=== PATIENT | male | born 1955 | race Caucasian/White ===

== ENCOUNTER 2016-09-06 11:23 | Emergency (ER) | payer MEDICARE ==
--- NOTE | ~2016-09-06 | EKG ---
PATIENT: YONIS GUTIERREZ UNIT #: [id number] Ventricular Rate: 87 BPM Atrial Rate: 87 BPM P-R Interval: 150 ms QRS Duration: 92 ms Q-T Interval: 396 ms QTC Calculation(Bezet): 476 ms P [employer]: 69 degrees Calculated R [employer]: -74 degrees Calculated T [employer]: -75 degrees Diagnosis Line: Normal sinus rhythm Diagnosis Line: Left anterior fascicular block Diagnosis Line: Lateral infarct (cited on or before 25-DEC-2012) Diagnosis Line: ST and T wave abnormality, consider inferior Diagnosis Line: ischemia Diagnosis Line: Abnormal ECG Diagnosis Line: When compared with ECG of 25-DEC-2012 06:42, Diagnosis Line: ST elevation now present in Lateral leads Diagnosis Line: Inverted T waves have replaced nonspecific T wave Diagnosis Line: abnormality in Anterolateral leads Diagnosis Line: Confirmed by VALENTINA CARSON MD ([id number]) on Diagnosis Line: 09/07/2016 7:59:51 AM INTERPRETING MD: YAMILETH CAMPO
--- NOTE | ~2016-09-06 | CT12 ---
[facility] A Service of [facility] & [facility] RADIOLOGY TEXT RESULTS PATIENT: YONIS GUTIERREZ JR LOCATION: [facility] : 53 UNIT #: [id number] AGE: [address]: Gloria Matias MD SEX: M ORDER DR: [id number] [facility] [address] [place], [place] [address] [id number] MR#: [id number] #: [id number] NAME: YONIS GUTIERREZ JR : 1955 SEX: M STUDY DATE/TIME: 09/06/2016 12:30 UNIT: [facility] ROOM: STUDY DESCRIPTION: CT Angio Abd Pelv Runoff Attending Physician: Gloria Matias M.D. Ordering Physician: Gloria Matias M.D. Primary Care Physician: No Primary Care Physician MEDICAL IMAGING REPORT This report is preliminary unless electronic signature is present EXAM CT angiography abdomen and pelvis lower extremity run off. HISTORY No pulses in the left foot. Additional history left foot pain since last p.m. Left foot blue today. No pulses. TECHNIQUE CT abdomen pelvis lower extremities performed with intravenous administration of 125 mL Isovue-370. This CT exam was performed with one or more of the following radiation dose reduction techniques: automatic exposure control, adjustment of mA and/or kV according to patient size, and iterative reconstruction. COMPARISON STUDIES Comparison to CT abdomen and pelvis 05/17/2015. No prior angiographic imaging of the lower extremities. ' FINDINGS The lung bases show no acute disease. There is some mild underlying centrilobular emphysema. The inferior heart and pericardium notable for mitral annular calcifications. Liver, gallbladder, spleen notable for lobulated appearance of the spleen with focal areas of parenchymal loss. This could be congenital in nature. It could be a reflection of prior splenic infarcts. It is not felt to be acute in time course. Pancreas, adrenal glands, kidneys unremarkable. CT PELVIS: No inguinal adenopathy. Urinary bladder, prostate unremarkable. No free fluid in pelvis. No pelvic or retroperitoneal adenopathy. Distal esophagus, stomach, small bowel unremarkable. Appendix normal. Colon shows evidence of prior sigmoid resection and reanastomoses. Mild mural prominence at the anastomotic line. No change STS. [facility] A Service of [facility] & [facility] RADIOLOGY TEXT RESULTS PATIENT: YONIS GUTIERREZ JR [id number] : 53 UNIT #: [id number] AGE: [address]: Gloria Matias MD SEX: M ORDER DR: from 2016 and favored to be postoperative in nature. There are calcifications in the pelvic fat favored to represent calcified lymph nodes. In the anterior abdominal wall to the left of the umbilicus there is an 8 mm focus of air density with some associated fat stranding. Please correlate with any known trauma or medicine administration at this location. I see no associated fluid. 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 The right lower extremity nonvascular soft tissues show no acute appearing abnormality. There is muscular atrophy. The left lower extremity nonvascular soft tissues show no clearly acute abnormality. Bony structures show multilevel degenerative change in the spine. No clearly acute bony abnormality. Soft tissue changes medial right foreleg may be a reflection of prior vascular intervention/venous harvesting. ARTERIAL ANATOMY: Distal thoracic aorta unremarkable. The celiac axis is patent. Mild disease at its origin. The superior mesenteric artery is patent. No significant atherosclerotic disease at its origin. Two right renal arteries arising immediately adjacent to one another. No hemodynamically significant disease at their origin. There is mild atherosclerotic disease of the main right renal artery origin. There are 2 left renal arteries arising immediately adjacent to one another. No indication of hemodynamically significant luminal narrowing. Mild disease at origin of the main left renal artery. The inferior mesenteric artery is patent. Probably moderate disease at its origin. The infrarenal abdominal aorta is small in overall caliber measuring up to approximately 1.8 cm x 1.7 cm with patent lumen of 1.3 cm x 1.4 cm. There is evidence of prior right common iliac artery stenting. 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 The patient has a femoral to femoral artery bypass graft which appeared widely patent in May 2015. It is occluded on today's examination. Previous study showed flow in the right common femoral artery on prior study. The short segment of residual right common femoral artery is now occluded. Previously seen flow in diminutive right superficial femoral artery absent on the current examination. There is collateral reconstitution of the right profunda femoris artery which is markedly diminutive in caliber. There is atherosclerotic plaque in the left common iliac artery. Noncalcified plaque extends into the lumen of the left common iliac artery. This is new compared to May 2015. It could act as a nidus for embolic material. There is probably not hemodynamically significant luminal narrowing of the left common iliac artery. The left internal and external iliac arteries are patent with mild disease in the internal iliac artery. The left common femoral artery is patent. Mild disease. The left profunda femoris artery is patent. Left superficial femoral artery patent without evidence of flow-limiting stenosis. Above-knee, behind knee and below-knee popliteal arterial segments are patent. The anterior tibial artery is patent to the level of the ankle. It is not well visualized at or distal to the level of the ankle. Delayed phase images were obtained without clear opacification of the dorsalis pedis artery at [facility] A Service of [facility] / [facility] RADIOLOGY TEXT RESULTS PATIENT: YONIS GUTIERREZ JR LOCATION: [facility] #: [id number] : 53 UNIT #: [id number] AGE: [address]: Gloria Matias MD SEX: M ORDER DR: or beyond the level of the ankle joint. Whether this represents acute or chronic occlusion or acute on chronic disease is unclear on basis of this examination. The left tibioperoneal trunk is patent. The left peroneal artery is patent throughout its course. It ramifies into collaterals at the ankle. The left posterior tibial artery is patent to the level of the ankle. On the initial and delayed images I do not clearly see the posterior tibial artery extending into the foot. The distal small vessels could be further evaluated with standard catheter angiography. IMPRESSION 1. Abnormal examination. Please see the complete dictation above in specific the segment of report labeled arterial anatomy. Relative to the patient's symptomatic left lower extremity, there is new noncalcified atherosclerotic plaque extending into the lumen of the left common iliac artery. This is probably not causing hemodynamically significant luminal narrowing but could act as a nidus for embolic material. The remainder of the left mid to distal common iliac artery, internal and external iliac arteries show no evidence of flow-limiting stenosis. The left common femoral artery is patent. The patient had a left to right femoral to femoral artery bypass graft which was widely patent in May 2015 and which is completely occluded now. The left common femoral artery remains patent, left superficial femoral, profunda femoris and popliteal arteries are patent. There is three-vessel runoff in the left foreleg to the level of the ankle. I cannot see the anterior tibial/dorsalis pedis artery extending into the foot or the posterior tibial artery extending into the foot on either the initial set of images or delayed phase imaging. Findings are concerning for occlusion of these vessels at the level of the ankle. To what extent the occlusion represents chronic disease or acute on chronic disease is unclear. This could be further evaluated with standard catheter angiography. 2. As noted the patient's femoral to femoral bypass graft is occluded. There is occlusion of the right common femoral artery. On the prior examination, flow was demonstrated in the right common femoral artery and diminutive right superficial femoral and profunda femoris remnants. On the current examination there is only minimal flow seen in tiny right profunda femoris artery. Patient is status post right above-knee amputation. 3. The mesenteric vessels are patent without flow-limiting stenosis. Incidental note made 2 renal arteries bilaterally. Relatively small caliber infrarenal abdominal aorta measuring about 1.7-1.8 cm in diameter with a patent lumen on the order of 1.3-1.4 cm. 4. Small focus of air and subcutaneous fat stranding left anterior abdominal wall paraumbilical region. Correlate with any recent medicine administration at this location or any recent trauma. There is no associated fluid collection and I see no skin defect. 5. Chronic occlusion of the right common iliac artery, internal and external iliac arteries, unchanged from prior study. [facility]. [facility] A Service of [facility] / [facility] RADIOLOGY TEXT RESULTS PATIENT: YONIS GUTIERREZ JR LOCATION: [facility] #: [id number] : 53 UNIT #: [id number] AGE: [address]: Gloria Matias MD SEX: M ORDER DR: 6. Please see remainder of incidental findings in body of report above. 7. Vascular findings preliminarily discussed with Dr. Matias at time of this dictation. Dictated by... Eugenio Reyes M.D. THIS IS AN ELECTRONICALLY VERIFIED REPORT Eugenio Reyes M.D. at 09/07/2016 9:39 PM Brenden TD: 09/06/2016 14:59 JOB #: [id number] MEDICAL IMAGING REPORT Page 1 of 1 COPY
--- NOTE | ~2016-09-06 | CR72 ---
[facility] A Service of [facility] & [facility] RADIOLOGY TEXT RESULTS PATIENT: YONIS GUTIERREZ JR LOCATION: [facility] : 53 UNIT #: [id number] AGE: [address]: Gloria Matias MD SEX: M ORDER DR: [id number] [facility] [address] [place], [place] [address] [id number] MR#: [id number] Acc #: [id number] NAME: YONIS GUTIERREZ JR : 1955 SEX: M STUDY DATE/TIME: 09/06/2016 12:11 UNIT: [facility] ROOM: STUDY DESCRIPTION: CR Chest Single View Portable Attending Physician: Gloria Matias M.D. Ordering Physician: Gloria Matias M.D. Primary Care Physician: No Primary Care Physician MEDICAL IMAGING REPORT This report is preliminary unless electronic signature is present EXAM Portable chest HISTORY Shortness of breath and weakness for the past 2 days. COMPARISON 05/11/2015 TECHNIQUE Single view chest was obtained. FINDINGS A single AP portable view of the chest shows both lungs to be clear. The heart is normal in size. The mediastinal contour is normal. No significant bone abnormalities are seen. IMPRESSION Normal portable chest. Dictated by... Demian Freeman M.D. THIS IS AN ELECTRONICALLY VERIFIED REPORT Demian Freeman M.D. at 09/06/2016 4:08 PM KODI/vin TD: 09/06/2016 14:05 JOB #: [id number] MEDICAL IMAGING REPORT Page 1 of 1 COPY
[~2016-09-06 11:23] MED LIST: ABILIFY5 MG PO; ALDACTONE25 MG PO; ALPRAZOLAM PO; ALTACE PO; ALTACE10 M2 PO; AMBIEN10 MG PO; AMLODIPINE BESY10 MG PO; APRESOLINE10 M1 PO; ARIXTRA7.5 MG/0.6 SQ; ASPIRIN PO; ASPIRIN81 MG PO; ATENOLOL PO; ATENOLOL25 MG PO; ATIVAN0.5 MG PO; CATAPRES-TTS-10.1 M1 TD; CEPHALEXIN500 M1 PO; CIALIS5 MG PO; COUMADIN5 MG PO; DESYREL50 M1 PO; FOLIC ACID PO; GABAPENTIN300 M2 PO; HALCION PO; HYDROCHLOROTHIA25 MG PO; HYDROXYZINE PAM25 M1 PO; IBUPROFEN200 M1 PO; KLONOPIN PO; LEXAPRO PO; LIPITOR PO; LIPITOR40 MG PO; LOPERAMIDE HCL2 M1 PO; LORTAB 5/500 TA1 TA1; LORTAB 5/500 TA1 TA1 PO; LORTAB 7.5-5001 TAB PO; LOSARTAN POTASS50 MG PO; MEDROL4 MG/DOSE- PO; MELATONIN10 M1 PO; MULTIPLE VITAMI1 T13 PO; NEURONTIN600 MG PO; NON ASPIRIN650 MG PO; PRINIVIL40 MG PO; PROTONIX PO; TYLOX 5/500 CAP1 CAP PO; VALIUM2 MG PO; VICODIN 5/1 TAB 5/50 DOB; VICODIN 5/1 TAB 5/50 PO; XANAX1 MG PO; ZANTAC150 MG PO; ZOLOFT PO; ZOLOFT100 MG PO
[2016-09-06 12:18] LABS: BASOPHIL# 0.1 X10e3 (0-0.3); BASOPHIL% 0.8 % (0-2.5); HEMATOCRIT 38.8 % (38.0-50.0); HEMOGLOBIN 13.1 gm/dL (13.0-16.0); LYMPHOCYTE# 1.3 X10e3 (1.0-3.5); LYMPHOCYTE% 12.4 % (17.0-45.0); MEAN CELL VOLUME 87.9 FL (83-96); MEAN CORPUSCULAR HEMOGLOBIN 29.6 PG (28-34); MEAN CORPUSCULAR HGB CONC 33.6 g/dL (30-36); MEAN PLATELET VOLUME 8.3 FL (6.5-11.5); MONOCYTE# 0.5 X10e3 (0-1.0); MONOCYTE% 4.4 % (3.0-12.0); NEUTROPHIL# 8.4 X10e3 (1.5-7.1); NEUTROPHIL% 82.4 % (40-75); PLATELET COUNT 355 X10e3 (140-420); RED BLOOD COUNT 4.42 X10e (3.90-5.60); RED CELL DISTRIBUTION WIDTH 16.6 % (11.0-15.5); WHITE BLOOD COUNT 10.2 X10e3 (4.0-10.5)
[2016-09-06 12:19] LABS: DIFF IND NO
[2016-09-06 12:33] LABS: PARTIAL THROMBOPLASTIN TIME 24.4 SECONDS (23.5-31.3); PROTHROMBIN TIME (PATIENT) 10.7 SECONDS (10.0-11.7)
[2016-09-06 12:42] LABS: ALBUMIN SERUM 4.4 g/dL (3.5-5.0); ALCOHOL BLOOD <5 mg/dL (0); ALKALINE PHOSPHATASE 122 U/L (32-92); ALT (SGPT) 29 U/L (10-40); AST (SGOT) 46 U/L (10-42); BILIRUBIN, DIRECT 0.2 mg/dL (0.0-0.2); BILIRUBIN,INDIRECT 1.2 mg/dL (0.0-0.9); BILIRUBIN,TOTAL 1.4 mg/dL (0.2-2.0); BLOOD UREA NITROGEN 12 mg/dL (9-23); CALCIUM SERUM 9.2 mg/dL (8.4-10.2); CARBON DIOXIDE 18 mmol/L (22-31); CHLORIDE 103 mmol/L (100-111); CPK (CREATINE PHOSPHOKINASE) 462 IU/L (36-174); CREATININE SERUM 0.6 mg/dL (0.6-1.4); GLOM FILT RATE Estimated 108.6 mL/min (>60); GLUCOSE FASTING 84 mg/dL (70-110); POTASSIUM 3.4 mmol/L (3.5-5.1); PROTEIN TOTAL SERUM 7.3 g/dL (6.0-8.3); SODIUM 133 mmol/L (135-145)
[2016-09-06 13:00] LABS: POC - CREATININE 0.74 mg/dL (0.64-1.27); POC - GFR >60.0 mL/min (>60)
[2016-09-06 13:09] LABS: POC - CKMB 5.2 ng/mL (0.0-7.9); POC - TROPONIN <0.05 ng/mL (<=0.05)
== END 2016-09-06 14:43 ==
LOC: CED 11:23
PROVIDERS: Emergency Medicine
DX: I74.3 Embolism and thrombosis of arteries of the lower extremities (principal); I10 Essential (primary) hypertension; E78.5 Hyperlipidemia, unspecified; G40.909 Epilepsy, unspecified, not intractable, without status epilepticus; F17.210 Nicotine dependence, cigarettes, uncomplicated; Z91.040 Latex allergy status; Z88.0 Allergy status to penicillin; Z88.5 Allergy status to narcotic agent; Z79.899 Other long term (current) drug therapy
CPT/HCPCS: 71010; 75635; 80048; 80076; 82550; 82553; 82565; 84484; 85025; 85610; 85730; 93005; 96365; 96375; 99285; G0480; J1170; J1644; J2405; Q9967